=== PATIENT | male | born 1985 | race Caucasian/White ===

== ENCOUNTER 2021-02-25 03:37 | Emergency (ER) | payer BC ==
[2021-02-25 04:13] VITALS: PULSE 56
[2021-02-25 05:18] LABS: ANION GAP 12.8 mEq/L (7-13); CHLORIDE,CL 93 mmol/L (98-107); SODIUM,NA 128 mmol/L (136-145)
[2021-02-25] MEDS ORDERED: Potassium Chloride 20 MEQ in Premix Bag 1 BAG IV ONE (05:35)
[2021-02-25] MEDS ORDERED: Ondansetron 4 MG/2 ML SDV IVPUSH ONE (05:35)
[2021-02-25] MEDS ORDERED: Sodium Chloride 0.9% 500 ML IV ONE (05:35)
--- NOTE | 2021-02-25 05:43 | EDM.PDOC ---
<Nacho Todd - Last Filed: 02/25/21 08:15> ED HPI GENERAL MEDICAL PROBLEM - General Chief Complaint: General Stated Complaint: HADCOVID INFUSION 02/24, DEHYDATED, WATERY BM Time Seen by Provider: 02/25/21 05:00 - Related Data Allergies Allergy/AdvReac Type Severity Reaction Status Date / Time No Known Allergies Allergy Verified 02/25/21 04:18 Home Meds: Home Meds Acetaminophen [Tylenol] 650 mg PO Q4H PRN 02/24/21 [History] Loperamide [Imodium] 2 mg PO Q6H PRN MDD 4 02/24/21 [History] Ondansetron [Ondansetron ODT] 4 mg PO Q6H PRN MDD 4 02/24/21 [History] Departure - Departure Time of Disposition: 08:45 Disposition: Home, Self-Care 01 Condition: Good Clinical Impression: COVID-19 virus infection, Hypokalemia, Hyponatremia, Dehydration - Discharge Information *PRESCRIPTION DRUG MONITORING PROGRAM REVIEWED*: Not Applicable *COPY OF PRESCRIPTION DRUG MONITORING REPORT IN PATIENT DIEGO: Not Applicable Instructions: Hyponatremia, Hypokalemia, Dehydration, Adult, [id number] Forms: ED Department Discharge Additional Instructions: Rx: Zofran 4mg Rx: Lomotil Rx: Potassium Chloride 20mEq Drink plenty of water, Gatorade, or Pedialyte. Follow up in clinic if not improving as expected. Return to ER if worse at any time. <Jessica Dudley - Last Filed: 02/25/21 21:37> ED HPI GENERAL MEDICAL PROBLEM - General Source of Information: Reports: Patient, RN, RN Notes Reviewed History Limitations: Reports: No Limitations - History of Present Illness INITIAL COMMENTS - FREE TEXT/NARRATIVE: Taj is a 35 y/o male who presents to the ED via personal vehicle with complaints of nausea and diarrhea. The patient was diagnosed with COVID-19 two days ago (02/23/21) following symptoms of cough, muscle aches, nausea, and diarrhea which began 12 days ago (03/16/21). He notes his upper respiratory symptoms have since resolved, however his GI symptoms persist. He received a dose of monoclonal antibodies yesterday; the patient is not vaccinated for COVID-19. He denies fever, shaking chills, vision changes, dizziness, chest pain/pressure, palpitations, vomiting, hematochezia, melena, or dysuria. He has taken one dose of Imodium approximately two hours prior to his arrival to this facility. The patient denies tobacco, alcohol, or recreational drug use. Past Medical History - Past Health History Medical/Surgical History: Denies Medical/Surgical History HEENT History: Reports: Impaired Vision Cardiovascular History: Reports: None Respiratory History: Reports: None Gastrointestinal History: Reports: None Genitourinary History: Reports: None Musculoskeletal History: Reports: None Neurological History: Reports: None Psychiatric History: Reports: None Endocrine/Metabolic History: Reports: Obesity/BMI 30+ Immunologic History: Reports: None Oncologic (Cancer) History: Reports: None Dermatologic History: Reports: None - Infectious Disease History Infectious Disease History: Reports: Chicken Pox - Past Surgical History Head Surgeries/Procedures: Reports: None HEENT Surgical History: Reports: Oral Surgery, Other (See Below) Other HEENT Surgeries/Procedures: surgery on the right ear, fishing hook stuck in ear. Cardiovascular Surgical History: Reports: None Respiratory Surgical History: Reports: None GI Surgical History: Reports: None Male Surgical History: Reports: None Endocrine Surgical History: Reports: None Neurological Surgical History: Reports: None Musculoskeletal Surgical History: Reports: None Oncologic Surgical History: Reports: None Dermatological Surgical History: Reports: None Social & Family History - Family History Family Medical History: No Pertinent Family History - Tobacco Use Tobacco Use Status *Q: Never Tobacco User Second Hand Smoke Exposure: No - Caffeine Use Caffeine Use: Reports: None Other Caffeine Use: 4-5 bottles per day - Recreational Drug Use Recreational Drug Use: No ED ROS GENERAL - Review of Systems Review Of Systems: Comprehensive ROS is negative, except as noted in HPI. ED EXAM, GENERAL - Physical Exam Exam: See Below Exam Limited By: No Limitations General Appearance: Alert, No Apparent Distress, Obese Eye Exam: Bilateral Eye: EOMI, Normal Inspection, PERRL (3mm) Ears: Normal External Exam, Hearing Grossly Normal Nose: Normal Inspection Throat/Mouth: Normal Inspection, Normal Oropharynx, Normal Voice, No Airway Compromise Head: Atraumatic, Normocephalic Neck: Normal Inspection, Full Range of Motion Respiratory/Chest: No Respiratory Distress, Lungs Clear, Normal Breath Sounds, No Accessory Muscle Use, Chest Non-Tender Cardiovascular: Normal Peripheral Pulses, Regular Rate, Rhythm, No Edema, No Gallop, No JVD, No Murmur, No Rub Peripheral Pulses: 2+: Radial (L), Radial (R) GI/Abdominal: Normal Bowel Sounds, Soft, Non-Tender, No Distention, No Abnormal Bruit, No Mass, Pelvis Stable. No: Guarding, Rigid, Rebound (Male) Exam: Deferred Rectal (Males) Exam: Deferred Back Exam: Normal Inspection, Full Range of Motion Extremities: Normal Inspection, Normal Range of Motion, Normal Capillary Refill Neurological: Alert, Oriented, CN II-XII Intact, Normal Cognition, Normal Gait, No Motor/Sensory Deficits Psychiatric: Normal Affect, Normal Mood Skin Exam: Warm, Dry, Intact, Normal Color, No Rash. No: Cyanosis, Jaundice, Mottled, Pallor Course - Vital Signs Last Recorded V/S: Last Vital Signs Temp 97.4 F 02/25/21 04:03 Pulse 56 L 02/25/21 04:03 Resp 18 02/25/21 04:03 BP Pulse Ox 93 L 02/25/21 04:03 - Orders/Labs/Meds Labs: Laboratory Tests 02/25/21 02/25/21 02/25/21 Range/Units 04:21 04:21 04:21 WBC 3.9 L (5.0-10.0) 10^3/uL RBC 4.63 (4.6-6.2) 10^6/uL Hgb 14.1 D (14.0-18.0) g/dL Hct 39.3 L (40.0-54.0) % MCV 84.9 D (80-100) fL MCH 30.5 (27.0-34.0) pg MCHC 35.9 H (33.0-35.0) g/dL Plt Count 141 L (150-450) 10^3/uL Neut % (Auto) 65.9 (42.2-75.2) % Lymph % (Auto) 23.5 (20.5-50.1) % [place] % (Auto) 10.3 H (2-8) % Eos % (Auto) 0.0 L (1.0-3.0) % Baso % (Auto) 0.3 (0.0-1.0) % Sodium 128 L (136-145) mmol/L Potassium 2.8 L (3.5-5.1) mmol/L Chloride 93 L (98-107) mmol/L Carbon Dioxide 25 (21-32) mmol/L Anion Gap 12.8 (7-13) mEq/L BUN 11 (7-18) mg/dL Creatinine 1.03 (0.70-1.30) mg/dL Est Cr Clr Drug Dosing 108.82 mL/min Estimated GFR (MDRD) > 60 BUN/Creatinine Ratio 10.7 (No establ ref range) Glucose 97 (70-99) mg/dL Calcium 7.8 L (8.5-10.1) mg/dL Magnesium 1.9 (1.8-2.4) mg/dL Total Bilirubin 1.7 H (0.2-1.0) mg/dL AST 48 H (15-37) U/L ALT 48 (16-63) U/L Alkaline Phosphatase 49 (46-116) U/L Total Protein 6.8 (6.4-8.2) g/dL Albumin 3.2 L (3.4-5.0) g/dL Globulin 3.6 Albumin/Globulin Ratio 0.89 Meds: Medications Discontinued Medications Generic Name Dose Route Start Last Admin Trade Name Freq PRN Reason Stop Dose Admin Sodium Chloride 500 mls @ 999 mls/hr 02/25/21 05:35 02/25/21 06:25 Normal Saline IV 02/25/21 06:05 250 mls/hr .BOLUS ONE Infusion Potassium Chloride 20 meq/ 100 mls @ 50 mls/hr 02/25/21 05:35 02/25/21 06:25 Premix IV 02/25/21 07:34 35 mls/hr ONETIME ONE Infusion Ondansetron HCl 4 mg 02/25/21 05:35 02/25/21 06:10 Ondansetron 4 Mg/2 Ml Sdv IVPUSH 02/25/21 05:36 4 mg ONETIME ONE Administration - Re-Assessments/Exams Free Text/Narrative Re-Assessment/Exam: 02/25/21 Patient continues to deny respiratory symptoms, including SOB or CP. NS 500cc bolus initiated. Will replace potassium via KCl 20mEq IVPB as well as PO r eplacement. Patient has been BM free since arrival to this facility. Care of patient transferred to Dr. Todd at 0700. Sepsis Event Note (ED) - Evaluation Sepsis Screening Result: No Definite Risk
== END 2021-02-25 08:27 | disposition home or self-care (01) ==
LOC: DL.ED 03:37
DX: U07.1 COVID-19 (principal); E86.0 Dehydration; E87.6 Hypokalemia; E87.1 Hypo-osmolality and hyponatremia; E66.9 Obesity, unspecified; Z68.38 Body mass index [BMI] 38.0-38.9, adult
CPT/HCPCS: 36415; 80053; 83735; 85025; 96365; 96366; 96375; 99284-25; J2405; J3480; J7030

== ENCOUNTER 2021-02-26 13:33 | Emergency (ER) | payer BC ==
[2021-02-26 14:29] VITALS: BP 119/61; PULSE 62
--- NOTE | 2021-02-26 15:14 | EDM.PDOC ---
ED HPI GENERAL MEDICAL PROBLEM - General Chief Complaint: Respiratory Problem Stated Complaint: COVID POS. GETTING MORE SICK Time Seen by Provider: 02/26/21 15:09 Source of Information: Reports: Patient, RN Notes Reviewed History Limitations: Reports: No Limitations - History of Present Illness INITIAL COMMENTS - FREE TEXT/NARRATIVE: 35 y/o M c/o headache, fatigue for almost 2 weeks. Pt has been seen here several times for COVID symptoms. He was diagnosed with COVID on Monday but his symptoms began Feb 14. 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 He denies vision changes, cp, abd pn, pelvic pn, ext pain, fever, chills, drugs, etoh. His symptoms have improved slightly since his visit yesterday. He reports he took some Tylenol yesterday evening which improved his TELLEZ somewhat. - Related Data Allergies Allergy/AdvReac Type Severity Reaction Status Date / Time No Known Allergies Allergy Verified 02/25/21 04:18 Home Meds: Home Meds Acetaminophen [Tylenol] 650 mg PO Q4H PRN 02/24/21 [History] Loperamide [Imodium] 2 mg PO Q6H PRN MDD 4 02/24/21 [History] Ondansetron [Ondansetron ODT] 4 mg PO Q6H PRN MDD 4 02/24/21 [History] Past Medical History - Past Health History Medical/Surgical History: Denies Medical/Surgical History HEENT History: Reports: Impaired Vision Cardiovascular History: Reports: None Respiratory History: Reports: None Gastrointestinal History: Reports: None Genitourinary History: Reports: None Musculoskeletal History: Reports: None Neurological History: Reports: None Psychiatric History: Reports: None Endocrine/Metabolic History: Reports: Obesity/BMI 30+ Immunologic History: Reports: None Oncologic (Cancer) History: Reports: None Dermatologic History: Reports: None - Infectious Disease History Infectious Disease History: Reports: Chicken Pox - Past Surgical History Head Surgeries/Procedures: Reports: None HEENT Surgical History: Reports: Oral Surgery, Other (See Below) Other HEENT Surgeries/Procedures: surgery on the right ear, fishing hook stuck in ear. Cardiovascular Surgical History: Reports: None Respiratory Surgical History: Reports: None GI Surgical History: Reports: None Male Surgical History: Reports: None Endocrine Surgical History: Reports: None Neurological Surgical History: Reports: None Musculoskeletal Surgical History: Reports: None Oncologic Surgical History: Reports: None Dermatological Surgical History: Reports: None Social & Family History - Family History Family Medical History: No Pertinent Family History - Tobacco Use Tobacco Use Status *Q: Never Tobacco User - Caffeine Use Caffeine Use: Reports: Coffee Other Caffeine Use: 4-5 bottles per day - Recreational Drug Use Recreational Drug Use: No ED ROS GENERAL - Review of Systems Review Of Systems: Comprehensive ROS is negative, except as noted in HPI. ED EXAM, GENERAL - Physical Exam Exam: See Below Exam Limited By: No Limitations General Appearance: Alert, No Apparent Distress Ears: Normal External Exam, Normal Canal, Hearing Grossly Normal, Normal TMs Nose: Normal Inspection, Normal Mucosa, No Blood Throat/Mouth: Normal Inspection, Normal Lips, Normal Teeth, Normal Gums, Normal Oropharynx, Normal Voice, No Airway Compromise Head: Atraumatic, Normocephalic Neck: Normal Inspection, Supple, Non-Tender, Full Range of Motion Respiratory/Chest: No Respiratory Distress, Lungs Clear, Normal Breath Sounds, No Accessory Muscle Use, Chest Non-Tender Cardiovascular: Normal Peripheral Pulses, Regular Rate, Rhythm, No Edema, No Gallop, No JVD, No Murmur, No Rub GI/Abdominal: Soft, Non-Tender (Male) Exam: Deferred Rectal (Males) Exam: Deferred Back Exam: Normal Inspection, Full Range of Motion Extremities: Normal Inspection, Normal Range of Motion, Non-Tender, Normal Capillary Refill, No Pedal Edema Neurological: Alert, Oriented, CN II-XII Intact, Normal Cognition, Normal Gait, Normal Reflexes, No Motor/Sensory Deficits Psychiatric: Normal Affect, Normal Mood Skin Exam: Warm, Dry, Intact Course - Vital Signs Last Recorded V/S: Last Vital Signs Temp 97.6 F 02/26/21 14:28 Pulse 62 02/26/21 14:28 Resp 20 02/26/21 14:28 BP 119/61 02/26/21 14:28 Pulse Ox 96 02/26/21 14:28 - Re-Assessments/Exams Free Text/Narrative Re-Assessment/Exam: 02/26/21 15:14 I spoke with the pt for over 20 min explaining the exam today and previous labs. I discussed with th ept about using tylenol and ibuprofen consistently to manage his symptoms. I informed the pt that post COVID symptoms can persist for weeks or months after infection. I explained that todays exam does not warrant further workup, steroids or other interventions. The pt understood and responded yes when I asked if I had answered all of his questions. Departure - Departure Time of Disposition: 15:19 Disposition: Home, Self-Care 01 Clinical Impression: Post-COVID chronic headache, Post-COVID chronic fatigue - Discharge Information *PRESCRIPTION DRUG MONITORING PROGRAM REVIEWED*: Not Applicable *COPY OF PRESCRIPTION DRUG MONITORING REPORT IN PATIENT DIEGO: Not Applicable Additional Instructions: Alternate Ibuprofen and Tylenol to control your symptoms. Your post COVID symptoms may persist for weeks to months. As long as your symptoms do not worsen you can manage your symptmos at home with over the counter medications and save yourself from emergency room visits. If any new symptoms or concerns develop contact your primary care facility or return to the ER. Sepsis Event Note (ED) - Evaluation Sepsis Screening Result: No Definite Risk - Focused Exam Vital Signs: Vital Signs Temp Pulse Resp BP Pulse Ox 02/26/21 14:28 97.6 F 62 20 119/61 96
== END 2021-02-26 15:40 | disposition home or self-care (01) ==
LOC: DL.ED 13:33
DX: R51.9 Headache, unspecified (principal); R53.83 Other fatigue; U09.9 Post COVID-19 condition, unspecified; E66.9 Obesity, unspecified; Z68.38 Body mass index [BMI] 38.0-38.9, adult
CPT/HCPCS: 99283